=== PATIENT | male | born 1985 | race African-American/Black ===

== ENCOUNTER 2021-02-26 08:48 | Emergency (ER) | payer SELFPAY ==
[~2021-02-26] VITALS: Ht 188 cm; Wt 94.3 kg
[2021-02-26 08:49] VITALS: BP 129/65
[2021-02-26] MEDS ORDERED: APAP325T4 PO (09:15)
--- NOTE | 2021-02-26 10:02 | REP ---
INDICATION: left sided testicular swelling. COMPARISON: None. TECHNIQUE: High-resolution bilateral scrotal sonography with Doppler. FINDINGS: Testicular parenchyma is normal homogeneous bilaterally. There is no evidence of intra testicular mass lesion. Testicular Doppler flow is preserved bilaterally with resistive indices measured at 0.70 on the right and 0.58 on the left. There is a small left-sided hydrocele containing septations. The left epididymis is somewhat hyperemic and heterogeneous, question epididymitis. Study is otherwise unremarkable. Right testicular dimensions are 4.5 x 1.8 x 2.3 cm. Left testis measures 4.0 x 2.4 x 2.7 cm. IMPRESSION: Small complex left-sided hydrocele. Hyperemic heterogeneous left epididymis consistent with epididymitis. Otherwise negative. <Electronically signed by Barry Ren > 02/26/21 [id number]
[2021-02-26] MEDS ORDERED: LEVO500T3 PO (10:25)
[2021-02-26 12:35] LABS: CHLAMYDIA DNA AMPLIFICATION NEGATIVE (NEGATIVE); GC DNA AMPLIFICATION NEGATIVE (NEGATIVE)
--- NOTE | 2021-02-27 08:52 | ED PDOC ---
Post-Departure Follow-Up radiology report faxed to Aide Santacruz MD Feb 27, 2021 08:52
== END 2021-02-26 11:17 | disposition home or self-care (01) ==
LOC: M ED 08:48
DX: N45.1 Epididymitis (principal); N43.3 Hydrocele, unspecified